=== PATIENT | male | born 1960 | race Caucasian/White ===

== ENCOUNTER → 2024-07-19 06:16 | Day surgery (SDC) | payer OTHER, SELFPAY | LOC: GI 06:16 | PROVIDERS: ATTENDING PHYSICIAN Specialist | DX: Z12.11 Encounter for screening for malignant neoplasm of colon (principal); K57.30 Diverticulosis of large intestine without perforation or abscess without bleeding; D12.3 Benign neoplasm of transverse colon | CPT/HCPCS: 45385; 88305 ==

== ENCOUNTER 2025-06-08 19:47 | Emergency (ER) | payer OTHER, SELFPAY ==
[2025-06-08 20:04] VITALS: BP 150/90
[2025-06-08] MEDS: BENADRYL 50 MG PO (20:21)
[2025-06-09 00:24] VITALS: BP 134/98
--- NOTE | 2025-06-09 00:27 | EDRN ---
Pt states he was stung by bees around 1800. Pt has two stings to R forearm and one to L hand and R ankle. Pt denies pain, sob, cp, throat swelling. Pt talks in full sentences. Pt thinks the benadryl he was given helped.
--- NOTE | 2025-06-09 00:53 | ED.GENMED ---
History of Present Illness
General
Chief Complaint: Insect Sting
Source: patient
Exam Limitations: none
Time Seen by Provider: 06/09/25 00:21
Nursing documentation reviewed up to this point in time: agreed with
History of Present Illness
History of Present Illness:
Note:
CHIEF COMPLAINT(S)
Bee stings with subsequent reaction affecting both his left dorsal hand and left leg.
HISTORY OF PRESENT ILLNESS
The patient is a 65-year-old male who presents with a reaction following multiple bee stings to his hand and legs. The patient reports that approximately two to three weeks ago, he experienced a bee sting resulting in swelling and discomfort around
his ankle. Today he was spraying bug spray around his property when he was stung multiple times on the left hand and left leg. the patient describes a history of significant reactions to insect stings, such as facial swelling following stings from
ground wasps, which he equates with yellow jackets. The most recent incident occurred at approximately 6 PM when he was stung again, resulting in painful and itchy sensations.
The patient denies any shortness of breath. There is concern for potential recurrent exposure as the stings originated from ground wasps that may reside underground near his residence.
SOCIAL HISTORY
Patient has never had an allergic reaction to bee stings.
REVIEW OF SYSTEMS
- General: Reports swelling and itching at the sting sites.
- Respiratory: Denies shortness of breath.
PHYSICAL EXAM
General: Alert, no acute distress.
Skin: Areas of swelling and erythema noted around the sites of reported stings on both the left hand and left leg.
Respiratory: Respirations are non-labored.
PROBLEM LIST
- Acute problem: Reaction to bee/wasp stings resulting in itching and swelling.
- Previous significant reaction to wasp stings.
PLAN
- Administer a one-time dose of oral steroids to manage the acute reaction and reduce inflammation.
- Supply a prescription for an Epinephrine auto-injector (EpiPen) for emergency use in case of future severe reactions, characterized by shortness of breath or scratchy throat.
- Recommend the patient take rhvl-jqx-ouibevy diphenhydramine every six hours to alleviate itching.
- Dry End Operator the patient on the safe use of the Epinephrine auto-injector, advising it can be administered through clothing, preferably into the thigh.
DIFFERENTIAL DIAGNOSIS
The Differential Diagnosis includes, in no particular order and is not limited to:
- Allergic reaction to insect sting
- Localized cellulitis secondary to sting
- Delayed allergic reaction
- Contact dermatitis
- Angioedema
- Papular urticaria
- Venom hypersensitivity
- Toxin-induced angioedema
- Mastocytosis
- Hives due to other allergen exposure
Disposition:
SUMMARY OF ENCOUNTER
The patient is a 65-year-old male who presented to the emergency department after experiencing multiple bee stings on his left hand and left leg, leading to noticeable swelling. The patient reports no respiratory distress at the time of evaluation
and has no history of anaphylactic reactions to insect stings in the past. The patient was evaluated for potential allergic reaction and managed accordingly.
ASSESSMENT
The patient was assessed for an acute allergic reaction to bee stings, considering the local swelling observed around the sting sites.
PLAN
- Administer a one-time dose of oral steroids to manage the acute reaction and reduce inflammation.
- Provide a prescription for an epinephrine auto-injector for emergency use in case of future severe reactions.
- Recommend the patient take lvkt-hin-sqhgash diphenhydramine every six hours to alleviate itching.
- Advise the patient on how to use the epinephrine auto-injector, emphasizing its safety and administration through clothing, preferably into the thigh.
MEDICATION RECONCILIATION
- Administered one-time dose of oral steroids.
- Prescribed an epinephrine auto-injector (EpiPen).
- Recommended mpju-cjl-xkfdbfh oral diphenhydramine for itching.
MEDICAL DECISION MAKING
-Complexity of Data Reviewed:
Chronic conditions affecting care.
Differential Diagnosis: Allergic reaction to insect sting, Localized cellulitis secondary to sting, Delayed allergic reaction, Contact dermatitis, Angioedema, Papular urticaria, Venom hypersensitivity, Toxin-induced angioedema, Mastocytosis, Hives
due to other allergen exposure.
- Risk:
Prescription medication was prescribed: oral steroids for the reaction, epinephrine auto-injector for emergency use.
DIAGNOSIS
Allergic reaction to bee stings - T63.441A
Past History
Past History
ED Past Medical History: None
ED Past Surgical History: None
Social History
Tobacco: Non-smoker
Personal:
Review of Systems
Review of Systems
Allergies reviewed?: Yes
All Other Systems: ROS reviewed and negative except as documented in HPI and ROS
Psychiatric: Reports anxiety
Phy Exam
General Physical Exam
General Presentation: well appearing and no apparent distress
General Skin: warm and dry
General Habitus: normal
General Mental: alert
General Hydration: appears well hydrated
ENT Exam
ENT Exam: EOMI, pharynx normal, neck supple and normocephalic
Eye Exam
Eye Exam: PERRL, cornea clear and conjunctiva normal
Cardiovascular Exam
Cardiovascular Exam: regular rate/rhythm, no edema, no murmur and normal peripheral pulses
Pulmonary Exam
Pulmonary Exam: lungs clear, no respiratory distress, no rales, no crackles, no rhonchi, no stridor, no wheezing and no cough
Gastrointestinal Exam
Gastrointestinal Exam: normal bowel sounds, non tender, soft, no organomegaly, no pulsatile mass and non distended
Neurological Exam
Neurological Exam: alert, oriented x3, no motor deficits and speech normal
Musculoskeletal Exam
Musculoskeletal Exam: full ROM and no edema
Skin Exam
Skin Exam: normal color, warm/dry, no rash, no petechia and redness (Warmth and swelling)
Psychiatric Exam
Psychiatric Exam: normal mood/affect
Course
Orders/Labs/Results
Orders:
Orders
06/08/25 20:09
Diphenhydramine [Benadryl] 50 mg .ROUTE .STK-MED ONE
06/08/25 20:21
Diphenhydramine [Benadryl] 50 mg PO NOW STA
06/09/25 00:48
Dexamethasone Pf [Decadron] 10 mg PO NOW STA
Vital Signs
Initial and Last Documented VS:
Initial Vital Signs
Temp Pulse Resp BP Pulse Ox
97.4 F 77 18 150/90 96
06/08/25 20:04 06/08/25 20:04 06/08/25 20:04 06/08/25 20:04 06/08/25 20:04
Last Documented Vital Signs
Temp Pulse Resp BP Pulse Ox
97.4 F 74 14 134/98 99
06/08/25 20:04 06/09/25 00:24 06/09/25 00:24 06/09/25 00:24 06/09/25 00:24
*Pulse Oximetry
SaO2: 99
Oxygen Mode of Delivery: Room air
Patient hypoxic: no
*Critical Care Note
Total Time (30-74mins, 75-104mins- exclusive of procedures): Not Applicable
ED Attending Note
-
Portions of this chart may have been created with voice recognition software.� Occasional wrong word or��sound alike� substitutions may have occurred due to the inherent limitations of voice recognition software.
Discharge Plan
Departure
Patient Disposition: Home (Routine Discharge)
Date of Disposition: 06/09/25
Time of Disposition: 00:55
Patient with high blood pressure during this ER visit?: Yes
Condition: Fair
Discharge Problem:
Bee sting
Instructions: Insect Bites and Stings (DC), BLOOD PRESSURE
Prescriptions:
New
epinephrine [EpiPen 2-Wiley] 0.3 mg/0.3 mL auto-injector
0.3 mg IM Q5-15M PRN (Reason: anaphylaxis) Qty: 2 0RF
No Action
multivitamin Tablet
1 tab PO DAILY
magnesium
400 mg PO DAILY
riboflavin (vitamin B2)
1 tab PO DAILY
Patient Comments:
pt unsure of mg
Referrals:
Khris Lopez DO [Family Provider, [facility]]
Activity Restrictions/Additional Instructions:
Thank You for choosing [facility].
It was a pleasure meeting you and taking part in your care. We hope for your continued healing and wellness.
Please read discharge instructions in their entirety. However, they are for general education and may not describe your exact diagnosis at discharge. Information on your ER visit and medical conditions were discussed with you along with appropriate
follow up information...
If indicated, please take your medications as instructed and indicated on discharge paperwork.
Please schedule a follow up appointment as directed. Call to schedule an appointment
Please return to the emergency department with ANY change in, persisting, or worsening of symptoms. If any of your symptoms do not improve, or persist, or become more severe within 6-12 hours, please return to the emergency department for further
care.
Please return to the emergency department if you develop a headache, neck pain/stiffness, fever greater than 100.4F, chest pain, shortness of breath, persistent nausea, vomiting, slurred speech, difficulty walking, numbness/tingling, weakness, signs
of infection or any other symptoms that are worrisome to you.
If you have any questions or concerns please do not hesitate to call the Hospital at or E-mail me directly at [email or web address]
Interventions
Interventions:
*Risk Screen - Suicide Last Done: 06/08/25 20:04
*General Assessment Last Done: 06/09/25 00:24
*Neglect/Abuse Screening Last Done: 06/08/25 23:24
*ED- Fall Risk Assessment Last Done: 06/09/25 00:24
ED- Pulmonary Assessment Last Done: 06/09/25 00:24
ED-Skin Assessment Last Done: 06/09/25 00:24
Discharge Date and Time
Print Language: SALVADORE[place]
[2025-06-09] MEDS: DECADRON 10 MG PO (00:54)
== END 2025-06-09 01:14 | disposition home or self-care (01) ==
LOC: EMR 19:47
PROVIDERS: EMERGENCY PHYSICIAN Student in an Organized Health Care Education/Training Program; FAMILY PHYSICIAN Family Medicine
DX: T63.461A Toxic effect of venom of wasps, accidental (unintentional), initial encounter (principal); Y93.H2 Activity, gardening and landscaping; Y92.009 Unspecified place in unspecified non-institutional (private) residence as the place of occurrence of the external cause
CPT/HCPCS: 99283